=== PATIENT | male | born 1955 | race American Indian/Alaskan Native ===

== ENCOUNTER 2018-07-12 12:52 | Emergency (ER) | payer OTHER ==
[~2018-07-12] VITALS: Ht 175.3 cm; Wt 78.9 kg
[2018-07-12] MEDS ORDERED: ATACAND HCT 321 EACH (13:06)
[2018-07-12] MEDS ORDERED: PROAIR HFA8.5 GM (13:07)
[2018-07-12] MEDS ORDERED: XOPENEX0.63 MG/3 (13:08)
== END 2018-07-12 17:51 | disposition home or self-care (01) ==
LOC: ER 12:52
DX: R34 Anuria and oliguria (principal); N40.0 Benign prostatic hyperplasia without lower urinary tract symptoms; J45.998 Other asthma; I10 Essential (primary) hypertension

== ENCOUNTER 2018-09-15 02:21 | Emergency (ER) | payer OTHER ==
[~2018-09-15] VITALS: Ht 170.2 cm; Wt 65.8 kg
[~2018-09-15 02:21] MED LIST: ATACAND HCT 321 EACH; PROAIR HFA8.5 GM; XOPENEX0.63 MG/3
== END 2018-09-15 17:06 | disposition home or self-care (01) ==
LOC: ER 02:21
DX: R00.2 Palpitations (principal); T48.6X5A Adverse effect of antiasthmatics, initial encounter

== ENCOUNTER 2019-04-13 12:27 | Emergency (ER) | payer OTHER ==
[~2019-04-13] VITALS: Ht 175.3 cm; Wt 79.4 kg
[2019-04-13] MEDS ORDERED: SINGULAIR 10MG10 MG PO (13:09)
== END 2019-04-13 18:39 | disposition home or self-care (01) ==
LOC: ER
DX: J11.1 Influenza due to unidentified influenza virus with other respiratory manifestations (principal)

== ENCOUNTER 2023-05-10 19:25 | Emergency (ER) | payer OTHER ==
[~2023-05-10] VITALS: Ht 175.3 cm; Wt 78.9 kg
[~2023-05-10 19:25] MED LIST changes: +SINGULAIR 10MG10 MG PO
[2023-05-10] MEDS ORDERED: TAMS0.4C PO (19:29)
[2023-05-10] MEDS ORDERED: METHYLPREDNISOLONE SOD SUCC 125 MG VIAL IV ONE (21:30)
[2023-05-10] MEDS ORDERED: IPRATROPIUM BROMIDE 0.5 MG/2.5 ML AMPUL.NEB IH SCH (21:30)
[2023-05-10] MEDS ORDERED: ALBUTEROL SULFATE 3 ML/2.5 MG AMPUL.NEB IH SCH (21:30)
[2023-05-10 22:00] LABS: HEMATOCRIT 43.4 % (39.0-48.0); HEMOGLOBIN 14.6 g/dL (13-16.00); MEAN CELL VOLUME 88.9 fL (80.0-100.00); MEAN CORPUSCULAR HEMOGLOBIN 29.8 pg (27.00-32.0); MEAN CORPUSCULAR HGB CONC 33.6 g/dl (32.0-36.0); PLATELET COUNT 232 K/uL (150-450); RED BLOOD COUNT 4.89 M/uL (4.00-6.00); RED CELL DISTRIBUTION WIDTH 14.3 % (11.5-14.5)
== END 2023-05-11 00:12 | disposition home or self-care (01) ==
LOC: ER 19:25
PROVIDERS: Emergency Medicine
DX: U07.1 COVID-19 (principal); Z88.8 Allergy status to other drugs, medicaments and biological substances; Z87.09 Personal history of other diseases of the respiratory system
CPT/HCPCS: 36415; 71046; 94640; 96365; 99283; J2930

== ENCOUNTER 2023-10-18 10:13 | Inpatient (IN) | payer OTHER ==
[~2023-10-18] VITALS: Ht 175.3 cm; Wt 78.9 kg
[~2023-10-18 10:13] MED LIST changes: +TAMS0.4C PO
--- NOTE | 2023-10-18 10:19 | NUR ---
PACIENTE ALERTA Y ORIENTADO X 3. REFIERE DESDE EL JUEVES TOS, CONGESTION, FIEBRE, DOLOR DE CHER, GARGANTA Y CORPORAL.
[2023-10-18] MEDS ORDERED: SINGULAIR10 MG PO (10:21)
[2023-10-18] MEDS ORDERED: ALBUTEROL SULFATE 0.5 ML/2.5 MG SOLUTION IH STA (10:50)
[2023-10-18] MEDS ORDERED: BUDESONIDE 0.5 MG/2 ML AMPUL.NEB IH STA (10:50)
--- NOTE | 2023-10-18 10:55 | NUR ---
PACIENTE EVALUADO POR MD BURKETTIEN ORDENA TRATAMIENTO MEDICO, SE LE ORIENTA A PACIENTE SOBRE EL MISMO Y VERBALIZA ENTENDER, SE LE COLECTAN MUESTRAS BAJO MEDIDAS ASEPTICAS. SE NOTIFICAN TERAPIAS A MS BRYSON.
[2023-10-18] MEDS ORDERED: ALBUTEROL SULFATE 3 ML/2.5 MG AMPUL.NEB IH ONE (11:03)
[2023-10-18 11:31] LABS: HEMATOCRIT 38.2 % (39.0-48.0); HEMOGLOBIN 12.8 g/dL (13-16.00); MEAN CELL VOLUME 87.7 fL (80.0-100.00); MEAN CORPUSCULAR HEMOGLOBIN 29.5 pg (27.00-32.0); MEAN CORPUSCULAR HGB CONC 33.6 g/dl (32.0-36.0); PLATELET COUNT 273 K/uL (150-450); RED BLOOD COUNT 4.36 M/uL (4.00-6.00)
--- NOTE | 2023-10-18 12:52 | NUR ---
SE NOTIFICAN HENRIQUE BRYSON.
[2023-10-18 13:44] LABS: ABG PH 7.467 (7.35-7.45); ABG PO2 71.5 mmHg (80-100); ABG pCO2 39.5 mmHg (35-45); BICARBONATE 27.9 mmol/l (23-25); SaO2 95.4 %; Tco2 29.1 mmol/l
[2023-10-18 14:10] LABS: allen test SATISFACTORY; o2 21 %; puncture site RADIAL RIGHT
[2023-10-18] MEDS ORDERED: IPRATROPIUM BROMIDE 0.5 MG/2.5 ML AMPUL.NEB IH SCH (17:36)
[2023-10-18] MEDS ORDERED: LEVALBUTEROL HCL 1.25 MG/3 ML SOLUTION IH SCH (17:36)
[2023-10-18] MEDS ORDERED: AZITHROMYCIN 500 MG in DEXTROSE 5 % IN WATER 250 ML IV SCH (17:38)
[2023-10-18] MEDS ORDERED: MONTELUKAST SODIUM 10 MG TABLET PO SCH (17:39)
[2023-10-18] MEDS ORDERED: METHYLPREDNISOLONE SOD SUCC 40 MG VIAL IV SCH (17:40)
[2023-10-18] MEDS ORDERED: 0.9 % SODIUM CHLORIDE 1,000 ML IV SCH (17:45)
[2023-10-18] MEDS ORDERED: ACETAMINOPHEN 500 MG GEL..CAP PO PRN (17:45)
[2023-10-18] MEDS ORDERED: METHYLPREDNISOLONE SOD SUCC 40 MG VIAL ONE (18:04)
[2023-10-18] MEDS ORDERED: AZITHROMYCIN 500 MG VIAL IV ONE (18:05)
[2023-10-18 18:42] LABS: PH,URINE 5.5 (5.0-8.0); URINE APPEARANCE Clear; URINE BILIRRUBIN Small (NEGATIVE); URINE BLOOD Negative; URINE COLOR Dark Yellow; URINE GLUCOSE Negative (NEGATIVE); URINE LEUKOCYTE Negative; URINE NITRATE Negative; URINE PROTEIN 30 (NEGATIVE)
[2023-10-18 18:46] LABS: URINE BACTERIA 20.1 uL (0.0-1933); URINE RBC 11.4 uL (0.0-20.8); URINE WBC 3.5 uL (0.0-23.2)
[2023-10-18] MEDS ORDERED: LEVALBUTEROL HCL 0.63 MG/3 ML SOLUTION IH ONE (19:04)
[2023-10-18] MEDS ORDERED: IPRATROPIUM BROMIDE 0.5 MG/2.5 ML AMPUL.NEB IH ONE (19:04)
[2023-10-18 19:34] LABS: URINE KETONE 40 (NEGATIVE)
[2023-10-18 19:37] LABS: INR 1.19; PROTHROMBIN TIME 12.3 SECONDS (9.0-11.5)
[2023-10-19] MEDS ORDERED: CEFTRIAXONE SODIUM 2,000 MG in 0.9 % SODIUM CHLORIDE 100 ML IV SCH (09:00)
[2023-10-19] MEDS ORDERED: ENOXAPARIN SODIUM 40 MG/0.4 ML SYRINGE SUBCUTANEO SCH (09:00)
[2023-10-19] MEDS ORDERED: FAMOTIDINE/PF 20 MG in 0.9 % SODIUM CHLORIDE 8 ML IV PUSH SCH (09:00)
[2023-10-19] MEDS ORDERED: TAMSULOSIN HCL 0.4 MG CAP PO SCH (09:00)
[2023-10-19] MEDS ORDERED: CANDESARTAN CILEXETIL 32 MG TABLET PO SCH (09:00)
[2023-10-19] MEDS ORDERED: HYDROCHLOROTHIAZIDE 12.5 MG CAPSULE PO SCH (09:00)
[2023-10-19 14:40] LABS: CALCIUM 9.4 mg/dL (8.5-10.1); CREATININE SERUM 0.83 mg/dL (0.70-1.30); GFR 91.86; POTASSIUM 4.2 mEq/L (3.5-5.1)
[2023-10-19] MEDS ORDERED: TUBERCULIN,PURIF.PROT.DERIV. 10 SKIN.TEST SKIN.TEST ID ONE (16:00)
[2023-10-19] MEDS ORDERED: METHYLPREDNISOLONE ACETATE 80 MG/ML VIAL IM ONE (19:45)
[2023-10-19] MEDS ORDERED: BUDESONIDE 0.5 MG/2 ML AMPUL.NEB IH SCH (21:00)
[2023-10-19] MEDS ORDERED: GUAIFEN/DEXTROMETHORPHAN/PE 10 ML BLIST.PACK PO SCH (21:00)
[2023-10-20] MEDS ORDERED: METHYLPREDNISOLONE SOD SUCC 40 MG VIAL IV SCH (05:00)
[2023-10-20 08:19] LABS: HEMATOCRIT 38.5 % (39.0-48.0); HEMOGLOBIN 13.1 g/dL (13-16.00); MEAN CELL VOLUME 87.5 fL (80.0-100.00); MEAN CORPUSCULAR HEMOGLOBIN 29.7 pg (27.00-32.0); MEAN CORPUSCULAR HGB CONC 33.9 g/dl (32.0-36.0); PLATELET COUNT 317 K/uL (150-450); RED CELL DISTRIBUTION WIDTH 13.9 % (11.5-14.5)
[2023-10-20 08:43] LABS: MYCOPLASMA PNEUMONIAE IGM NON REACTIVE (NO REACTIVE)
[2023-10-20 08:48] LABS: ALBUMIN 3.3 gm/dL (3.4-5.0); BILIRUBIN TOTAL 0.36 mg/dL (0.3-1.2); CALCIUM 9.1 mg/dL (8.5-10.1); CREATININE SERUM 0.79 mg/dL (0.70-1.30); GFR 97.25; GLOBULINA 3.2 G/DL (2.4-3.5); MAGNESIUM 2.2 mg/dL (1.8-2.4); PHOSPHOROUS 3.5 mg/dL (2.5-4.9); POTASSIUM 3.72 mEq/L (3.5-5.1); TOTAL PROTEIN 6.5 gm/dL (6.4-8.2)
[2023-10-22 00:03] LABS: URINE APPEARANCE Clear; URINE BILIRRUBIN Negative (NEGATIVE); URINE BLOOD Large; URINE COLOR Yellow; URINE GLUCOSE Negative (NEGATIVE); URINE KETONE Negative (NEGATIVE); URINE LEUKOCYTE Moderate; URINE NITRATE Negative; URINE PROTEIN Trace (NEGATIVE); URINE UROBILINOGEN 0.2 E.U./dl
[2023-10-22 00:06] LABS: URINE RBC 1161.8 uL (0.0-20.8)
[2023-10-22 00:08] LABS: URINE CAST 1.06 uL (0.0-1.40)
[2023-10-22] MEDS ORDERED: FAMOTIDINE/PF 20 MG/2 ML VIAL ONE (09:02)
[2023-10-23 06:51] LABS: HEMATOCRIT 37.7 % (39.0-48.0); HEMOGLOBIN 12.8 g/dL (13-16.00); MEAN CELL VOLUME 86.5 fL (80.0-100.00); MEAN CORPUSCULAR HEMOGLOBIN 29.4 pg (27.00-32.0); PLATELET COUNT 361 K/uL (150-450); RED BLOOD COUNT 4.35 M/uL (4.00-6.00); RED CELL DISTRIBUTION WIDTH 13.9 % (11.5-14.5)
[2023-10-23 07:32] LABS: BILIRUBIN TOTAL 0.35 mg/dL (0.3-1.2); CREATININE SERUM 0.78 mg/dL (0.70-1.30); GFR 98.69; GLOBULINA 2.8 G/DL (2.4-3.5); POTASSIUM 4.22 mEq/L (3.5-5.1); TOTAL PROTEIN 5.8 gm/dL (6.4-8.2)
[2023-10-23] MEDS ORDERED: FAMOTIDINE/PF 20 MG/2 ML VIAL ONE (09:03)
[2023-10-23 12:09] LABS: PLATELET ESTIMATE NORMAL (NORMAL)
[2023-10-23] MEDS ORDERED: FAMOtidine 20 MG TABLET PO SCH (21:00)
[2023-10-24] MEDS ORDERED: LEVOFLOXACIN500 MG PO (10:14)
[2023-10-24] MEDS ORDERED: TAMS0.4C PO (10:15)
[2023-10-24] MEDS ORDERED: XOPENEX CO1.25 MG/0. IH (10:15)
[2023-10-24] MEDS ORDERED: IPRATROPIU0.2 MG/1 M IH (10:15)
[2023-10-24] MEDS ORDERED: ATACAND HCT 321 EACH PO (10:19)
[2023-10-24] MEDS ORDERED: MONTELUKAST SOD10 MG PO (10:20)
[2023-10-24] MEDS ORDERED: BUDESONIDE0.5 MG/2 M IH (10:20)
[2023-10-24] MEDS ORDERED: FAMOTIDINE20 MG PO (10:20)
[2023-10-24] MEDS ORDERED: PROSCAR5 MG PO (10:21)
[2023-10-24] MEDS ORDERED: METHYLPREDNISOLO4 M1 PO (10:21)
== END 2023-10-24 11:59 | disposition home or self-care (01) | DRG 194 ==
LOC: ER 10:14 → MEDJ 18:17
PROVIDERS: Emergency Medicine; General Practice; Internal Medicine; Internal Medicine Infectious Disease; ADMIT Internal Medicine; ATTEND Internal Medicine
PROC: BB24ZZZ Computerized Tomography (CT Scan) of Bilateral Lungs (ICD-10-PCS; principal; 2023-10-18)
PROC: 3E0F7GC Introduction of Other Therapeutic Substance into Respiratory Tract, Via Natural or Artificial Opening (ICD-10-PCS; 2023-10-18)
PROC: 0T9B70Z Drainage of Bladder with Drainage Device, Via Natural or Artificial Opening (ICD-10-PCS; 2023-10-21)
DX: J18.9 Pneumonia, unspecified organism (principal); J45.901 Unspecified asthma with (acute) exacerbation; R65.10 Systemic inflammatory response syndrome (SIRS) of non-infectious origin without acute organ dysfunction; J20.9 Acute bronchitis, unspecified; R33.9 Retention of urine, unspecified; I10 Essential (primary) hypertension

== ENCOUNTER 2025-01-06 06:03 | Emergency (ER) | payer OTHER ==
[~2025-01-06] VITALS: Ht 175.3 cm; Wt 74.4 kg
[~2025-01-06 06:03] MED LIST changes: +ATACAND HCT 321 EACH PO; +BUDESONIDE0.5 MG/2 M IH; +FAMOTIDINE20 MG PO; +IPRATROPIU0.2 MG/1 M IH; +LEVOFLOXACIN500 MG PO; +METHYLPREDNISOLO4 M1 PO; +MONTELUKAST SOD10 MG PO; +PROSCAR5 MG PO; +SINGULAIR10 MG PO; +XOPENEX CO1.25 MG/0. IH
[2025-01-06] MEDS ORDERED: ATACAND HCT 321 EAC1 (06:09)
[2025-01-06] MEDS ORDERED: PROAIR RESPICL90 MCG (06:09)
[2025-01-06] MEDS ORDERED: ACETAMINOPHEN 500 MG GEL..CAP PO ONE ×2 (07:30→07:37)
[2025-01-06] MEDS ORDERED: METHYLPREDNISOLONE SOD SUCC 125 MG VIAL IM ONE (07:30)
[2025-01-06] MEDS ORDERED: IPRATROPIUM BROMIDE 0.5 MG/2.5 ML AMPUL.NEB IH ONE ×2 (07:30→10:56)
[2025-01-06] MEDS ORDERED: METHYLPREDNISOLONE SOD SUCC 125 MG VIAL ONE (07:37)
[2025-01-06] MEDS ORDERED: BUDESONIDE 0.5 MG/2 ML AMPUL.NEB IH ONE ×2 (07:45→10:56)
[2025-01-06 08:34] LABS: BASO % 0.6 % (0.1-1.2); EOS # 0.14 (0.04-0.54); EOS % 1.5 % (0.7-7.0); LYMPH # 0.92 (1.18-3.74); LYMPH % 9.6 % (19.3-53.1); MEAN PLATELET VOLUME 10.20 fl (9.4-12.4); MONO # 1.17 (0.24-0.82); NEUT # 7.29 (1.56-6.13); NEUT % 75.9 % (34.0-71.1); RED CELL DISTRIBUTION WIDTH 13.5 % (11.6-14.4)
[2025-01-06 08:43] LABS: MONO % 12.2 % (4.7-12.5)
[2025-01-06 08:52] LABS: ALT/SGPT 22.0 U/L (12-78); AST/SGOT 14.0 U/L (15-37); BILIRUBIN TOTAL 0.85 mg/dL (0.3-1.2); BUN CREA RATIO 12.0 (7.0-25.0); CREATININE SERUM 1.03 mg/dL (0.70-1.30); GFR 71.39; GLOBULINA 3.0 G/DL (2.4-3.5); GLUCOSE FASTING 122.0 mg/dL (65-100); OSMOLALITY SERUM 280.0 MOSM/KG (275-295)
[2025-01-06 10:03] LABS: COVID-19 AG NEGATIVE (NEGATIVE)
[2025-01-06] MEDS ORDERED: BUDESONIDE0.5 MG/2 M IH (13:37)
[2025-01-06] MEDS ORDERED: XOPENEX CO1.25 MG/0. IH (13:37)
[2025-01-06] MEDS ORDERED: BENZONATATE200 M1 PO (13:37)
[2025-01-06] MEDS ORDERED: MEDROLPACK PO (13:37)
[2025-01-06] MEDS ORDERED: ZITHROMAX500 MG PO (13:37)
[2025-01-06] MEDS ORDERED: ZYRTEC10 M3 PO (13:42)
== END 2025-01-06 14:54 | disposition home or self-care (01) ==
LOC: ER 06:04
DX: J45.21 Mild intermittent asthma with (acute) exacerbation (principal); I10 Essential (primary) hypertension; Z20.822 Contact with and (suspected) exposure to COVID-19; Z88.6 Allergy status to analgesic agent; Z91.013 Allergy to seafood
CPT/HCPCS: 36415; 71046; 94640; 96372; 99283; J3490

== ENCOUNTER 2025-02-04 12:28 | Emergency (ER) | payer OTHER ==
[~2025-02-04] VITALS: Ht 175.3 cm; Wt 70.8 kg
[~2025-02-04 12:28] MED LIST changes: +ATACAND HCT 321 EAC1; +BENZONATATE200 M1 PO; +MEDROLPACK PO; +PROAIR RESPICL90 MCG; +ZITHROMAX500 MG PO; +ZYRTEC10 M3 PO
[2025-02-04 13:47] VITALS: BP 116/74; O2SAT 97
[2025-02-04] MEDS ORDERED: 0.9 % SODIUM CHLORIDE 500 ML IV ONE (14:30)
[2025-02-04 16:29] LABS: URINE APPEARANCE Clear; URINE BILIRRUBIN Negative (NEGATIVE); URINE BLOOD Negative; URINE COLOR Yellow; URINE GLUCOSE Negative (NEGATIVE); URINE KETONE Negative (NEGATIVE); URINE LEUKOCYTE Negative; URINE NITRATE Negative; URINE PROTEIN Negative (NEGATIVE); URINE UROBILINOGEN 0.2 E.U./dl
[2025-02-04 16:33] LABS: URINE WBC 2.1 uL (0.0-23.2)
[2025-02-04 16:40] LABS: BASO % 1.0 % (0.1-1.2); EOS # 0.16 (0.04-0.54); EOS % 2.6 % (0.7-7.0); LYMPH # 1.39 (1.18-3.74); LYMPH % 22.3 % (19.3-53.1); MEAN PLATELET VOLUME 9.80 fl (9.4-12.4); MONO # 0.54 (0.24-0.82); MONO % 8.7 % (4.7-12.5); NEUT # 4.06 (1.56-6.13); NEUT % 65.1 % (34.0-71.1); RED CELL DISTRIBUTION WIDTH 13.2 % (11.6-14.4)
[2025-02-04 17:07] LABS: URINE BACTERIA 3.5 uL (0.0-1933); URINE CAST 0.00 uL (0.0-1.40); URINE EPITHELIAL CELLS 1.2 uL (0.0-38.8); URINE RBC 1.1 uL (0.0-20.8)
[2025-02-04 17:18] LABS: INR 1.09
[2025-02-04 17:21] LABS: ALT/SGPT 22.0 U/L (12-78); AST/SGOT 17.0 U/L (15-37); BILIRUBIN TOTAL 0.6 mg/dL (0.3-1.2); BUN CREA RATIO 16.0 (7.0-25.0); CREATININE SERUM 1.02 mg/dL (0.70-1.30); GFR 72.2; GLOBULINA 3.4 G/DL (2.4-3.5); GLUCOSE FASTING 151.0 mg/dL (65-100); OSMOLALITY SERUM 282.0 MOSM/KG (275-295)
[2025-02-04] MEDS ORDERED: DIPHENHYDRAMINE HCL 50 MG/ML VIAL 1ML IV ONE (18:15)
[2025-02-04] MEDS ORDERED: METHYLPREDNISOLONE SOD SUCC 125 MG VIAL IV ONE (18:15)
[2025-02-04] MEDS ORDERED: DIPHENHYDRAMINE HCL 50 MG/ML VIAL 1ML ONE (18:27)
[2025-02-04] MEDS ORDERED: METHYLPREDNISOLONE SOD SUCC 125 MG VIAL ONE (18:27)
== END 2025-02-04 22:22 ==
LOC: ER 12:28
PROVIDERS: General Practice
DX: K40.90 Unilateral inguinal hernia, without obstruction or gangrene, not specified as recurrent (principal); R10.20 Pelvic and perineal pain unspecified side; K46.9 Unspecified abdominal hernia without obstruction or gangrene; R10.9 Unspecified abdominal pain; I10 Essential (primary) hypertension; Z88.6 Allergy status to analgesic agent; Z91.013 Allergy to seafood
CPT/HCPCS: 36415; 74177; 96365; 96366; 99284; J1200; J3490; J7042; Q9965

== ENCOUNTER 2025-02-23 13:31 | Emergency (ER) | payer OTHER ==
[~2025-02-23] VITALS: Ht 175.3 cm; Wt 74.4 kg
[2025-02-23] MEDS ORDERED: IPRATROPIUM BROMIDE 0.5 MG/2.5 ML AMPUL.NEB IH SCH (14:30)
[2025-02-23] MEDS ORDERED: LEVALBUTEROL HCL 1.25 MG/3 ML SOLUTION IH SCH (14:30)
[2025-02-23] MEDS ORDERED: METHYLPREDNISOLONE SOD SUCC 125 MG VIAL IV ONE (14:30)
[2025-02-23 16:33] LABS: BASO % 0.5 % (0.1-1.2); EOS # 0.01 (0.04-0.54); EOS % 0.2 % (0.7-7.0); LYMPH # 0.93 (1.18-3.74); LYMPH % 21.4 % (19.3-53.1); MEAN PLATELET VOLUME 10.10 fl (9.4-12.4); MONO # 1.10 (0.24-0.82); NEUT # 2.27 (1.56-6.13); NEUT % 52.4 % (34.0-71.1); RED CELL DISTRIBUTION WIDTH 13.9 % (11.6-14.4)
[2025-02-23 16:55] LABS: LYMPHOCYTE MAN 22.0 %; MONO % 25.3 % (4.7-12.5); MONOCYTE MAN 29.0 %; NEUTROPHILS MAN 48.0 %
[2025-02-23] MEDS ORDERED: OSELTAMIVIR PHOSPHATE 75 MG CAPSULE PO ONE (17:30)
[2025-02-23 18:15] LABS: COVID-19 AG NEGATIVE (NEGATIVE)
[2025-02-23] MEDS ORDERED: MEDROLPACK PO (18:38)
[2025-02-23] MEDS ORDERED: PEPCID AC20 MG PO (18:38)
[2025-02-23] MEDS ORDERED: OSEL75CA PO (18:38)
[2025-02-23] MEDS ORDERED: XOPENEX CO1.25 MG/0. IH (18:38)
[2025-02-23] MEDS ORDERED: TUSSIN DM LIQU118 ML PO (18:38)
[2025-02-23] MEDS ORDERED: ZITHROMAX500 MG PO (18:38)
[2025-02-23] MEDS ORDERED: IPRATROPIU0.2 MG/1 M IH (18:38)
== END 2025-02-23 19:18 ==
LOC: ER 13:32
PROVIDERS: General Practice
DX: J10.1 Influenza due to other identified influenza virus with other respiratory manifestations (principal); Z88.6 Allergy status to analgesic agent; Z91.013 Allergy to seafood; I10 Essential (primary) hypertension; J45.909 Unspecified asthma, uncomplicated; N40.0 Benign prostatic hyperplasia without lower urinary tract symptoms; R06.02 Shortness of breath; Z20.822 Contact with and (suspected) exposure to COVID-19